=== PATIENT | female | born 1980 | race Caucasian/White ===

== ENCOUNTER 2022-02-27 10:10 | Emergency (ER) | payer OTHER, SELFPAY ==
--- NOTE | ~2022-02-27 | XR_ITS ---
EXAMINATION: XR chest 2V 02/27/2022 10:53 INDICATION: Cough with chest pain PROCEDURE: 2 view chest COMPARISON: No prior studies for comparison. FINDINGS: The lungs are clear. The cardiomediastinal silhouette is within normal limits. There are no pleural effusions. There is no pneumothorax suspected. IMPRESSION: 1: NO ACUTE CARDIOPULMONARY DISEASE. Reviewed, dictated and finalized at location A.
[2022-02-27 10:20] VITALS: BP 106/65; PULSE 88; RESP 16; TEMP 36.2; O2SAT 99
--- NOTE | 2022-02-27 10:22 | ECG_ITS ---
Rate 85 PA 168 QRSd 88 QT 363 QTc 434 --[place]-- P 58 QRS 4 T 31 SINUS RHYTHM POSSIBLE LEFT ATRIAL ENLARGEMENT BORDERLINE ECG Electronically Signed On 02-27-2022 15:32:17 CDT by Rolando GAN
--- NOTE | 2022-02-27 11:04 | ED.CHESTPAIN ---
HPI - Chest Pain General Chief Complaint: Chest Pain Stated Complaint: Chest Pain Time Seen by Provider: 02/27/22 10:32 Source: patient Mode of arrival: ambulatory Limitations: no limitations History of Present Illness HPI narrative: Patient presents today complaining of sternal chest pressure radiating to the back since yesterday. Symptoms are worse when lying down. Associated symptoms include intermittent dizziness and dry cough. Cough has been present for 2 days. Denies shortness of breath, numbness or tingling in the extremities, fever. She currently rates her pain 6/10 and has not tried any [id number] interventions prior to arrival. Denies any history of asthma or COPD. She is a non-smoker. Denies cardiac history. Related Data Allergies Allergy/AdvReac Type Severity Reaction Status Date / Time No Known Allergies Allergy Verified 01/16/22 11:43 Review of Systems Review of Systems: CONSTITUTIONAL: Denies body aches, fever, chills, or sweats. EYES: Denies visual changes, redness, or discharge. ENT: Denies rhinorrhea, congestion, sore throat, or otalgia. CARDIOVASCULAR: Denies palpitations, or edema.+ Chest pain RESPIRATORY: Denies dyspnea.+ Cough GASTROINTESTINAL: Denies abdominal pain, nausea, vomiting, or diarrhea. GENITOURINARY: Denies dysuria or hematuria. SKIN: Denies rash, itching, or wounds. MUSCULOSKELETAL: Denies back pain, joint pain, or myalgia. NEUROLOGIC: Denies headache, numbness, tingling, or weakness.+ Dizziness PSYCH: Denies depression or anxiety. [facility] Past Medical History Medical History Lateral epicondylitis of left elbow Residual hemorrhoidal skin tags Family History Family History Mother Family history of chronic obstructive pulmonary disease Social History Social History Smoking status: Never smoker Second hand tobacco smoke exposure: No Alcohol intake: current Alcohol use details: Rarely Substance use: never Substance use type: does not use Gender identity (if verbalized by the patient): Female Comments At time of signature, I have reviewed and agree with nursing past medical, surgical, social and family history unless otherwise noted. Please see nursing chart for further information. There is no relevant family history pertinent to the presenting complaint Exam Narrative: GENERAL: Well-appearing, well-nourished, and in no acute distress. HEAD: Normocephalic, atraumatic. EYES: EOMI. No redness or drainage. Conjunctivae normal. ENT: Mucous membranes pink and moist. NECK: Normal AROM. Supple. No lymphadenopathy. CHEST: No respiratory distress. Clear to auscultation. HEART: Regular rate and rhythm. No murmur appreciated. Normal peripheral pulses. EXTREMITIES: Normal range of motion. No edema. SKIN: Warm, dry, no rash. Capillary refill normal. Normal skin turgor. NEURO: No focal deficits. Alert and oriented x3. Gait steady. PSYCH: Normal affect. No signs of depression or anxiety. Course Course Level of Care: Express Care Visit Vital Signs Vital signs: Vital Signs Temperature 97.2 F L 02/27/22 10:20 Pulse Rate 88 02/27/22 10:20 Respiratory Rate 16 02/27/22 10:20 Blood Pressure 106/65 02/27/22 10:20 Pulse Oximetry 99 02/27/22 10:20 Oxygen Delivery Room Air 02/27/22 10:20 Temperature 97.2 F L 02/27/22 10:20 Pulse Rate 88 02/27/22 10:20 Respiratory Rate 16 02/27/22 10:20 Blood Pressure 106/65 02/27/22 10:20 Pulse Oximetry 99 02/27/22 10:20 Oxygen Delivery Room Air 02/27/22 10:31 Reviewed Transfer Transfered to: [facility] Transportation: Other (Private vehicle) Transfer rationale: chest pain Accepting physician: Dr. Betts [facility] - Chest Pain Imaging Data Radiologist's impression: ITS Impressions Chest X-Ray
== END 2022-02-27 11:20 | disposition short-term general hospital (02) ==
PROVIDERS: Emergency Provider Nurse Practitioner; PCP Family Medicine
DX: R07.9 Chest pain, unspecified (principal)
CPT/HCPCS: 71046; 93005; 99213; G0463

== ENCOUNTER 2022-02-27 12:20 | Emergency (ER) | payer OTHER, SELFPAY ==
[2022-02-27] VITALS (8 sets, daily range): BP systolic 106–113; BP diastolic 72–89; PULSE 83–98; RESP 13–16; TEMP 36.3–36.6; O2SAT 97–100
--- NOTE | ~2022-02-27 | XR_ITS ---
EXAMINATION: XR chest 2V DATE: 02/27/2022 13:28 INDICATION: Central chest pain. Cough. TECHNIQUE: Frontal and lateral views of the chest were obtained. COMPARISON: Chest 2 views at 10:51 AM FINDINGS: The chest demonstrates clear lungs without pneumonia, pleural effusion, or pneumothorax. Th e heart size is normal. IMPRESSION: 1. No acute cardiopulmonary disease. Reviewed, dictated and finalized at location A.
--- NOTE | 2022-02-27 12:25 | ECG_ITS ---
Measurements Intervals Z[place] Rate: 91 P: 54 MA: 162 QRS: 7 QRSD: 88 T: 35 QT: 355 QTc: 437 Interpretive Statements SINUS RHYTHM POSSIBLE LEFT ATRIAL ENLARGEMENT BORDERLINE ECG Electronically Signed On 02-27-2022 13:07:53 CDT by Rolando GAN
[2022-02-27 12:52] LABS: Basophils Percent Auto 0.5 % (0.2-1.2); Eosinophils Absolute Auto 0.2 K/mm3 (0-0.3); Eosinophils Percent Auto 3.5 % (0-4.4); Hematocrit 41.1 % (37.0-47.0); Hemoglobin 14.1 g/dL (12.0-15.0); Immature Granulocyte Absolute 0.04 K/mm3 (0.00-0.031); Immature Granulocyte Percent A 0.6 % (0-0.5); Lymphocytes Percent Auto 39.4 % (18.3-44.2); Mean Corpuscular HGB Conc 34.3 g/dl (32-36); Mean Corpuscular Hemoglobin 30.5 pg (26-34); Monocytes Absolute Auto 0.4 K/mm3 (0.1-0.6); Monocytes Percent Auto 6.4 % (2.6-8.5); Neutrophils Absolute Auto 3.3 K/mm3 (1.3-6.7); Neutrophils Percent Auto 49.6 % (45.5-73.1); Platelet Count Result 283 k/mm3 (150-375); Red Blood Count 4.62 M/mm3 (4.2-5.4); Red Cell Distribution Width 12.2 % (11.5-14.5); White Blood Count 6.6 K/mm3 (4.5-10.0)
[2022-02-27 13:04] LABS: Prothrombin Time 12.4 Seconds (11.1-14.7)
[2022-02-27 13:05] LABS: Partial Thromboplastin Time 25.3 SECONDS (22.3-36.8)
--- NOTE | 2022-02-27 13:06 | ED.CHESTPAIN ---
HPI - Chest Pain General Chief Complaint: Chest Pain Stated Complaint: CHEST PAIN Time Seen by Provider: 02/27/22 13:04 Source: patient and RN notes reviewed Mode of arrival: ambulatory Limitations: no limitations History of Present Illness HPI narrative: Patient is 41 years old white female presented to the ED with retrosternal chest pain, pressure type like a fist behind the proximal sternum, constant, started 1:30 PM yesterday, worse when she lay down flat, better laying down on the recliner, intermittent nausea, intermittent coughing for the last 2 days, history of diabetes since September 2021, very stressed because unable to control it. She denies any fever, chills, nausea, vomiting, diarrhea, constipation, shortness of breath. Patient reports the pain sometimes radiates to the back. Patient does not smoke or drink or uses drugs Related Data Allergies Allergy/AdvReac Type Severity Reaction Status Date / Time No Known Allergies Allergy Verified 01/16/22 11:43 Review of Systems Review of Systems: All systems reviewed & are unremarkable except as noted in HPI and below PMFSH Past Medical History Medical History Lateral epicondylitis of left elbow Residual hemorrhoidal skin tags Family History Family History Mother Family history of chronic obstructive pulmonary disease Social History Social History Smoking status: Never smoker Second hand tobacco smoke exposure: No Alcohol intake: current Alcohol use details: Rarely Substance use: never Substance use type: does not use Gender identity (if verbalized by the patient): Female Exam Narrative: General appearance: Well-developed, well-nourished Skin: Normal color Head: Normocephalic, nontraumatic Eyes: Clear conjunctiva ENT: Oropharynx normal, ears normal, nose normal Neck: Supple, nontender Chest and respiratory: Airway patent, no respiratory distress, no accessory muscle use Heart: Regular rate/rhythm Abdomen: Soft, nontender, no organomegaly, quiet bowel sounds Vascular: Normal peripheral pulses, normal capillary refill. Musculoskeletal: Normal range of motion, nontender back Neurologic: Alert and oriented ?3, [employer] is normal as tested, no gross motor deficit Course Course Emergency Course: Patient presents with constant chest pain over the last 24 hours, pressure-like, at rest. Work-up did not show any significant finding to explain her symptoms. Anxiety, esophagitis are a possibility. My plan to discharge patient on famotidine and to follow-up with her family physician. Patient declined to take any days off work. Vital Signs Vital signs: Vital Signs Temperature 36.6 C 02/27/22 12:29 Pulse Rate 91 02/27/22 12:29 Respiratory Rate 16 02/27/22 12:29 Blood Pressure 106/72 02/27/22 12:29 Pulse Oximetry 100 02/27/22 12:29 Oxygen Delivery Room Air 02/27/22 12:29 Temperature 36.6 C 02/27/22 12:29 Pulse Rate 92 02/27/22 14:15 Respiratory Rate 14 02/27/22 14:15 Blood Pressure 113/77 02/27/22 14:01 Pulse Oximetry 98 02/27/22 14:15 Oxygen Delivery Room Air 02/27/22 12:29 MDM - Chest Pain Differential Diagnosis Differential diagnosis: Likely atypical chest pain, costochondritis and chest pain Lab Data Result diagrams: 02/27/22 12:44 02/27/22 12:44 Labs: Lab Results 02/27/22 02/27/22 02/27/22 Range/Units 12:43 12:43 12:43 WBC (4.5-10.0) K/mm3 RBC (4.2-5.4) M/mm3 Hgb (12.0-15.0) g/dL Hct (37.0-47.0) % MCV (
[2022-02-27 13:13] LABS: Alanine Aminotransferase 33 U/L (6-35); Albumin Level 4.6 g/dL (3.5-5.1); Alkaline Phosphatase 63 U/L (38-126); Anion Gap 7 mmol/L (8-16); Aspartate Amino Transferase 23 U/L (14-36); Bilirubin,Total 0.4 mg/dL (0.2-1.3); Blood Urea Nitrogen 13 mg/dL (7-17); Calcium 8.8 mg/dL (8.4-10.2); Carbon Dioxide 29 mmol/L (22-30); Chloride 103 mmol/L (98-107); Estimated CRCL calculation 110 ml/min; Estimated Glomerular Filt Rate > 60; Glucose 211 mg/dL (65-110); Lipase 141 U/L (23-300); Potassium 4.1 mmol/L (3.4-5.0); Sodium 139 mmol/L (137-145)
[2022-02-27 13:23] LABS: Troponin I < 0.012 ng/mL (0.000-0.034)
[2022-02-27 14:51] LABS: CRP 1.1 mg/dL (<1.0)
[2022-02-27] MEDS: BELLADONNA ALK/PHENOB ELIX 10 ML, MAG HYDROX/ALUMINUM HYD/SIMETH 30 ML, LIDOCAINE HCL 2... PO (14:55)
[2022-02-27 15:34] LABS: Erythrocyte Sedimentation Rate 12 mm/hr (0-20)
== END 2022-02-27 15:03 | disposition home or self-care (01) ==
PROVIDERS: Emergency Medicine; Emergency Provider Emergency Medicine; PCP Family Medicine
DX: R07.89 Other chest pain (principal); R94.31 Abnormal electrocardiogram [ECG] [EKG]
CPT/HCPCS: 36415; 71046; 80053; 83690; 84484; 85025; 85610; 85652; 85730; 86140; 93005; 99213; 99284; A9270; G0463

== ENCOUNTER 2022-04-02 12:56 | Outpatient (RCR) | payer OTHER, SELFPAY | END 2022-06-19 08:48 | disposition home or self-care (01) | LOC: ANHDMC 12:56 | PROVIDERS: PCP Family Medicine; Visit Provider Physician Assistant | DX: E11.9 Type 2 diabetes mellitus without complications (principal); Z71.89 Other specified counseling | CPT/HCPCS: 99199; G0108 ==

== ENCOUNTER 2022-08-29 09:51 | Outpatient (CLI) | payer OTHER, SELFPAY ==
[2022-08-29 20:26] LABS: Anion Gap 7 mmol/L (8-16); Blood Urea Nitrogen 12 mg/dL (7-17); Carbon Dioxide 28 mmol/L (22-30); Chloride 102 mmol/L (98-107); Potassium 4.6 mmol/L (3.4-5.0); Sodium 137 mmol/L (137-145)
[2022-08-29 20:27] LABS: Alanine Aminotransferase 39 U/L (6-35); Albumin Level 4.3 g/dL (3.5-5.1); Alkaline Phosphatase 59 U/L (38-126); Aspartate Amino Transferase 32 U/L (14-36); Bilirubin,Total 0.6 mg/dL (0.2-1.3); Calcium 8.4 mg/dL (8.4-10.2); Cholesterol 277 mg/dL (0-200); Estimated Glomerular Filt Rate > 60; Glucose 285 mg/dL (65-110); HDL Direct 35 mg/dL; Triglycerides 305 mg/dL (<150)
[2022-08-29 20:45] LABS: LDL Cholesterol Direct 161 mg/dL
[2022-08-29 21:31] LABS: Microalbumin Urine Random 16.9 mg/L (0-16.7)
[2022-08-29 21:43] LABS: Creatinine Urine 106.2 mg/dL; MALB Creatinine Ratio 15.9 mg/g (0-30)
[2022-08-30 12:48] LABS: Hemoglobin A1C 11.6 % (<5.7)
== END 2022-08-29 09:52 | disposition home or self-care (01) ==
LOC: ANHGOSHLAB 09:52
PROVIDERS: PCP Family Medicine; Visit Provider Family Medicine
DX: E11.9 Type 2 diabetes mellitus without complications (principal); E03.9 Hypothyroidism, unspecified
CPT/HCPCS: 36415; 80053; 80061; 82043; 82607; 83036; 84443